=== PATIENT | female | born 1965 | race Caucasian/White ===

== ENCOUNTER 2022-03-14 07:26 | Emergency (ER) | payer MEDICAID, OTHER ==
[~2022-03-14] VITALS: Ht 154.9 cm; Wt 83.5 kg
[~2022-03-14 07:26] MED LIST: DOCU-299 PO; HYDR-5191 PO; NITR100C7 PO
[2022-03-14 07:31] VITALS: BP 150/87
--- NOTE | 2022-03-14 07:36 | NUR ---
PT AMBULATED TO ER BED 12 WITH A STEADY GAIT.
--- NOTE | 2022-03-14 07:51 | NUR ---
56 Y/O FEMALE C/O LOWER ABDOMINAL PAIN 06/02 DESCRIBES ACHING RADIATES TO LUQ WITH N/V/D X6DAYS. DENIES TAKING MEDICATION FOR SYMPTOMS. DENIES FEVERS, CHILLS OR URINARY SYMPTOMS. PMH: HTN, FATTY LIVER NKA
--- NOTE | 2022-03-14 07:54 | NUR ---
REGENERATOR OPERATOR AT PT BEDSIDE.
--- NOTE | 2022-03-14 08:02 | NUR ---
DR. CHEEK AT PT BEDSIDE FOR FURTHER EVALUATION.
[2022-03-14] MEDS ORDERED: KETOROLAC 30 MG/ML VIAL IVP ONE (08:10)
[2022-03-14] MEDS ORDERED: NACL 0.9% 1,000 ML IV SCH (08:10)
[2022-03-14] MEDS ORDERED: ONDANSETRON 4 MG/2 ML VIAL IVP ONE (08:10)
[2022-03-14] MEDS ORDERED: KETOROLAC 30 MG/ML VIAL ONE (08:12)
[2022-03-14 08:35] LABS: ALBUMIN 3.2 g/dL (3.4-5.0); ANION GAP 12.3 (8-16); CARBON DIOXIDE 25.4 mmol/L (21-32); CREATININE 0.8 mg/dL (0.6-1.3); POTASSIUM 3.7 mmol/L (3.5-5.1); TOTAL BILIRUBIN 0.6 mg/dL (0.0-1.0)
[2022-03-14 08:36] LABS: BASOPHILS % (AUTO) 0.3 % (0.0-2.0); EOSINOPHILS # (AUTO) 0.2 K/uL (0-0.4); HEMATOCRIT 41.6 % (36-48); HEMOGLOBIN 14.1 g/dL (12.0-16.0); LYMPHOCYTES # (AUTO) 2.3 K/uL (2.5-16.5); LYMPHOCYTES % (AUTO) 20.6 % (20.5-51.1); MEAN CORPUSCULAR HEMOGLOBIN 30 pg (27-31); MEAN CORPUSCULAR HGB CONC 34 g/dL (33-37); MONOCYTES # (AUTO) 1.2 K/uL (0.8-1.0); MONOCYTES % (AUTO) 10.8 % (1.7-9.3); NEUTROPHILS # (AUTO) 7.2 K/uL (1.8-7.7); NEUTROPHILS % (AUTO) 66.3 % (42.2-75.2); PLATELET COUNT (AUTO) 231 K/uL (140-450); RED BLOOD CELL COUNT(AUTO) 4.67 MIL/uL (4.20-5.40); RED CELL DISTRIBUTION WIDTH 13.4 % (11.6-13.7); WHITE BLOOD COUNT (AUTO) 10.9 K/uL (4.8-10.8)
--- NOTE | 2022-03-14 08:44 | NUR ---
PT TAKEN TO CT VIA RROYER.
--- NOTE | 2022-03-14 09:02 | NUR ---
PT TAKEN TO ER BED 12 VIA SHELBY.
[2022-03-14 09:03] LABS: BILIRUBIN,URINE 1+ (NEGATIVE); BLOOD, URINE 1+ (NEGATIVE); LEUKOCYTE ESTERASE ,URINE NEGATIVE (NEGATIVE); NITRITE, URINE NEGATIVE (NEGATIVE); UGLUCOSE NEGATIVE (NEGATIVE)
[2022-03-14 09:35] LABS: APPEARANCE,URINE CLEAR (CLEAR); COLOR,URINE YELLOW (YELLOW)
[2022-03-14 09:36] LABS: RBC,URINE 0-5 /HPF (0-5); WBC,URINE 0-5 /HPF (0-5)
[2022-03-14] MEDS ORDERED: METR-435 PO (10:15)
[2022-03-14] MEDS ORDERED: ACET-8386 PO (10:15)
[2022-03-14] MEDS ORDERED: CIPR500T4 PO (10:15)
[2022-03-14] MEDS ORDERED: ONDA8TAB87 PO (10:15)
[2022-03-14] MEDS ORDERED: IBUP-2213 PO (10:15)
[2022-03-14 10:28] VITALS: BP 109/55
--- NOTE | 2022-03-14 10:29 | NUR ---
Patient discharged with v/s stable. Written and verbal after care instructions given FOR DIVERTICULITIS and explained. Patient alert, oriented and verbalized understanding of instructions. Ambulatory with steady gait. All questions addressed prior to discharge. ID band removed. Patient advised to follow up with PMD. Rx of NORCO, CIPRO, IBUPROFEN, FLAGYL, AND ZOFRAN given. Patient educated on indication of medication including possible reaction and side effects. Opportunity to ask questions provided and answered.
== END 2022-03-14 10:28 | disposition home or self-care (01) ==
LOC: MED 07:26
DX: K57.92 Diverticulitis of intestine, part unspecified, without perforation or abscess without bleeding (principal); R11.2 Nausea with vomiting, unspecified; R19.7 Diarrhea, unspecified; I10 Essential (primary) hypertension; Z79.899 Other long term (current) drug therapy
CPT/HCPCS: 36415; 74176; 80053; 81001; 81025; 83690; 85025; 96361; 96374; 96375; 99284; J1885; J2405; J7030

== ENCOUNTER 2022-04-26 22:50 | Emergency (ER) | payer OTHER ==
[~2022-04-26] VITALS: Ht 154.9 cm; Wt 79.4 kg
[~2022-04-26 22:50] MED LIST changes: +ACET-8386 PO; +CIPR500T4 PO; +IBUP-2213 PO; +METR-435 PO; +ONDA8TAB87 PO
[2022-04-26 23:00] VITALS: BP 134/93
--- NOTE | 2022-04-27 00:20 | NUR ---
Dr. Saab examining patient.
[2022-04-27] MEDS ORDERED: IBUP-2218 PO ×2 (00:50→23:34)
[2022-04-27] MEDS ORDERED: HYDROcodone/APAP 5/325 MG 1 TAB TAB PO ONE (00:50)
[2022-04-27] MEDS ORDERED: HYDR-5080 PO (00:50)
[2022-04-27] MEDS ORDERED: ACYC-278 PO ×2 (00:50→23:34)
[2022-04-27] MEDS ORDERED: ACYCLOVIR 200 MG CAP PO ONE (00:50)
[2022-04-27 01:12] VITALS: BP 128/72
--- NOTE | 2022-04-27 01:12 | NUR ---
Patient discharged with v/s stable. Written and verbal after care instructions given and explained. Patient alert, oriented and verbalized understanding of instructions. Ambulatory with steady gait. All questions addressed prior to discharge. ID band removed. Patient advised to follow up with PMD. Rx of Acyclovir, [place] and Ibuprofen given. Patient educated on indication of medication including possible reaction and side effects. Opportunity to ask questions provided and answered.
== END 2022-04-27 01:12 | disposition home or self-care (01) ==
LOC: MED 22:50
DX: B02.9 Zoster without complications (principal); I10 Essential (primary) hypertension; Z79.899 Other long term (current) drug therapy; Z79.1 Long term (current) use of non-steroidal anti-inflammatories (NSAID); Z79.891 Long term (current) use of opiate analgesic; Z79.2 Long term (current) use of antibiotics
CPT/HCPCS: 99283

== ENCOUNTER 2022-05-05 09:06 | Emergency (ER) | payer OTHER ==
[~2022-05-05] VITALS: Ht 154.9 cm; Wt 85.9 kg
[~2022-05-05 09:06] MED LIST changes: +ACYC-278 PO; +HYDR-5080 PO; +IBUP-2218 PO
[2022-05-05 09:11] VITALS: BP 157/100
[2022-05-05] MEDS ORDERED: KETOROLAC 60 MG/2 ML VIAL IM ONE (09:30)
[2022-05-05] MEDS ORDERED: IBUP-2213 PO (09:53)
[2022-05-05] MEDS ORDERED: ACET-8386 PO (09:53)
== END 2022-05-05 10:06 | disposition home or self-care (01) ==
LOC: MED 09:06
DX: M54.50 Low back pain, unspecified (principal); B02.9 Zoster without complications; I10 Essential (primary) hypertension; Z79.899 Other long term (current) drug therapy
CPT/HCPCS: 81002; 81025; 96372; 99283; J1885

== ENCOUNTER 2022-05-12 21:38 | Emergency (ER) | payer OTHER ==
[~2022-05-12] VITALS: Ht 154.9 cm; Wt 88.6 kg
[2022-05-12 22:54] VITALS: BP 149/90
--- NOTE | 2022-05-12 22:58 | NUR ---
PT SENT TO LOBBY.
--- NOTE | 2022-05-13 01:05 | NUR ---
PT AMBULATED TO BED #3
[2022-05-13] MEDS ORDERED: DICYCLOMINE 20 MG/2 ML VIAL IM ONE (01:35)
--- NOTE | 2022-05-13 01:43 | NUR ---
LAB AT BEDSIDE FOR BLOOD COLLECTION
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
[2022-05-13 01:52] LABS: BASOPHILS % (AUTO) 0.4 % (0.0-2.0); EOSINOPHILS # (AUTO) 0.4 K/uL (0-0.4); EOSINOPHILS % (AUTO) 3.6 % (0.0-4.0); HEMATOCRIT 39.6 % (36-48); HEMOGLOBIN 13.6 g/dL (12.0-16.0); LYMPHOCYTES # (AUTO) 2.3 K/uL (2.5-16.5); MEAN CORPUSCULAR HEMOGLOBIN 30 pg (27-31); MEAN CORPUSCULAR HGB CONC 34 g/dL (33-37); MEAN CORPUSCULAR VOLUME 88.5 fL (80-94); MONOCYTES % (AUTO) 9.8 % (1.7-9.3); NEUTROPHILS # (AUTO) 6.7 K/uL (1.8-7.7); NEUTROPHILS % (AUTO) 64.2 % (42.2-75.2); PLATELET COUNT (AUTO) 277 K/uL (140-450); RED BLOOD CELL COUNT(AUTO) 4.48 MIL/uL (4.20-5.40); RED CELL DISTRIBUTION WIDTH 14.2 % (11.6-13.7); WHITE BLOOD COUNT (AUTO) 10.5 K/uL (4.8-10.8)
[2022-05-13 02:19] LABS: APPEARANCE,URINE CLEAR (CLEAR); BILIRUBIN,URINE NEGATIVE (NEGATIVE); BLOOD, URINE NEGATIVE (NEGATIVE); COLOR,URINE YELLOW (YELLOW); LEUKOCYTE ESTERASE ,URINE NEGATIVE (NEGATIVE); NITRITE, URINE NEGATIVE (NEGATIVE); UGLUCOSE NEGATIVE (NEGATIVE)
[2022-05-13 02:24] LABS: ALBUMIN 3.6 g/dL (3.4-5.0); ANION GAP 10.3 (8-16); CREATININE 0.8 mg/dL (0.6-1.3); POTASSIUM 3.3 mmol/L (3.5-5.1); TOTAL BILIRUBIN 0.3 mg/dL (0.0-1.0)
[2022-05-13] MEDS ORDERED: POTASSIUM CHLORIDE 10 MEQ TABER PO ONE (02:35)
--- NOTE | 2022-05-13 03:08 | NUR ---
PT TO CT
[2022-05-13] MEDS ORDERED: BEN10 PO (06:13)
[2022-05-13] MEDS ORDERED: NAPR-54 PO (06:13)
[2022-05-13] MEDS ORDERED: CIPR500T4 PO (06:13)
[2022-05-13] MEDS ORDERED: METR-435 PO (06:13)
[2022-05-13 06:45] VITALS: BP 123/78
--- NOTE | 2022-05-13 06:45 | NUR ---
Patient discharged with v/s stable. Written and verbal after care instructions given and explained. Patient alert, oriented and verbalized understanding of instructions. Ambulatory with steady gait. All questions addressed prior to discharge. ID band removed. Patient advised to follow up with PMD. Rx of BENTYL, CIPRO, NAPROXEN AND METRONIDAZOLE given. Patient educated on indication of medication including possible reaction and side effects. Opportunity to ask questions provided and answered.
== END 2022-05-13 06:45 | disposition home or self-care (01) ==
LOC: MED 21:38
DX: K57.32 Diverticulitis of large intestine without perforation or abscess without bleeding (principal); R21 Rash and other nonspecific skin eruption; I10 Essential (primary) hypertension; Z98.890 Other specified postprocedural states; Z79.1 Long term (current) use of non-steroidal anti-inflammatories (NSAID); Z79.899 Other long term (current) drug therapy; Z79.2 Long term (current) use of antibiotics; Z79.891 Long term (current) use of opiate analgesic
CPT/HCPCS: 36415; 74176; 80053; 81003; 83690; 85025; 96372; 99285; J0500

== ENCOUNTER 2022-05-25 15:41 | Emergency (ER) | payer OTHER ==
[~2022-05-25] VITALS: Ht 154.9 cm; Wt 85.3 kg
[~2022-05-25 15:41] MED LIST changes: +BEN10 PO; +NAPR-54 PO
[2022-05-25 15:49] VITALS: BP 152/94
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
--- NOTE | 2022-05-25 16:30 | NUR ---
OSWALDO HUTCHISON AT BEDSIDE FOR EVAL
[2022-05-25] MEDS ORDERED: KETOROLAC 30 MG/ML VIAL IM ONE (16:35)
[2022-05-25] MEDS ORDERED: GABA300C PO (16:56)
[2022-05-25] MEDS ORDERED: IBUP-2213 PO (16:56)
--- NOTE | 2022-05-25 17:29 | NUR ---
Patient discharged with v/s stable. Written and verbal after care instructions given and explained. Patient alert, oriented and verbalized understanding of instructions. Ambulatory with steady gait. All questions addressed prior to discharge. ID band removed. Patient advised to follow up with PMD. Rx of GABAPENTIN AND MOTRIN given. Patient educated on indication of medication including possible reaction and side effects. Opportunity to ask questions provided and answered.
== END 2022-05-25 17:29 | disposition home or self-care (01) ==
LOC: MED 15:41
DX: B02.29 Other postherpetic nervous system involvement (principal); I10 Essential (primary) hypertension; Z79.1 Long term (current) use of non-steroidal anti-inflammatories (NSAID); Z79.899 Other long term (current) drug therapy; Z79.2 Long term (current) use of antibiotics; Z79.891 Long term (current) use of opiate analgesic
CPT/HCPCS: 81002; 81025; 96372; 99283; J1885

== ENCOUNTER 2023-04-23 20:47 | Emergency (ER) | payer OTHER ==
[~2023-04-23] VITALS: Ht 154.9 cm; Wt 83.5 kg
[~2023-04-23 20:47] MED LIST changes: -ACET-8386 PO; +ACET-8905 PO; +GABA300C PO
[2023-04-23 21:17] VITALS: BP 157/95
--- NOTE | 2023-04-23 22:18 | NUR ---
PT AMB TO BED #2
--- NOTE | 2023-04-23 22:24 | NUR ---
Dr. Saunders examining patient.
[2023-04-23 22:47] LABS: BASOPHILS # (AUTO) 0.1 K/uL (0.00-0.22); BASOPHILS % (AUTO) 0.8 % (0.0-2.0); EOSINOPHILS # (AUTO) 0.5 K/uL (0-0.4); EOSINOPHILS % (AUTO) 5.1 % (0.0-4.0); HEMATOCRIT 41.5 % (36-48); HEMOGLOBIN 14.3 g/dL (12.0-16.0); LYMPHOCYTES # (AUTO) 2.6 K/uL (2.5-16.5); LYMPHOCYTES % (AUTO) 26.4 % (20.5-51.1); MEAN CORPUSCULAR HEMOGLOBIN 30 pg (27-31); MEAN CORPUSCULAR HGB CONC 34 g/dL (33-37); MEAN CORPUSCULAR VOLUME 87.4 fL (80-94); MONOCYTES # (AUTO) 0.8 K/uL (0.8-1.0); MONOCYTES % (AUTO) 7.9 % (1.7-9.3); NEUTROPHILS # (AUTO) 5.9 K/uL (1.8-7.7); NEUTROPHILS % (AUTO) 59.8 % (42.2-75.2); PLATELET COUNT (AUTO) 229 K/uL (140-450); RED BLOOD CELL COUNT(AUTO) 4.75 MIL/uL (4.20-5.40); RED CELL DISTRIBUTION WIDTH 13.5 % (11.6-13.7); WHITE BLOOD COUNT (AUTO) 9.8 K/uL (4.8-10.8)
[2023-04-23 23:16] LABS: ANION GAP 12.4 (8-16); CARBON DIOXIDE 27.1 mmol/L (21-32); CREATININE 0.8 mg/dL (0.6-1.3); POTASSIUM 3.5 mmol/L (3.5-5.1); TOTAL BILIRUBIN 0.3 mg/dL (0.0-1.0)
[2023-04-23] MEDS ORDERED: FURO20TA8 PO (23:34)
[2023-04-23 23:51] VITALS: BP 150/89
--- NOTE | 2023-04-23 23:52 | NUR ---
Patient discharged with v/s stable. Written and verbal after care instructions given and explained. Patient alert, oriented and verbalized understanding of instructions. Ambulatory with steady gait. All questions addressed prior to discharge. ID band removed. Patient advised to follow up with PMD. Rx of Lasix sent to preferred pharmacy. Patient educated on indication of medication including possible reaction and side effects. Opportunity to ask questions provided and answered.
== END 2023-04-23 23:52 | disposition home or self-care (01) ==
LOC: MED 20:47
DX: R60.9 Edema, unspecified (principal); R79.89 Other specified abnormal findings of blood chemistry; I10 Essential (primary) hypertension; Z79.899 Other long term (current) drug therapy; Z98.890 Other specified postprocedural states
CPT/HCPCS: 36415; 80053; 83880; 85025; 85379; 99283

== ENCOUNTER 2023-07-06 11:06 | Emergency (ER) | payer OTHER ==
[~2023-07-06] VITALS: Ht 154.9 cm; Wt 85.7 kg
[~2023-07-06 11:06] MED LIST changes: +FURO20TA8 PO
[2023-07-06 11:18] VITALS: BP 143/75; PULSE 75; RESP 16; TEMP 98
[2023-07-06] MEDS ORDERED: ACET-10509 PO (12:25)
[2023-07-06 12:40] VITALS: BP 120/79; PULSE 62; RESP 17
== END 2023-07-06 12:39 | disposition home or self-care (01) ==
LOC: MED 11:06
DX: G89.29 Other chronic pain (principal); M25.572 Pain in left ankle and joints of left foot; M25.561 Pain in right knee; M77.32 Calcaneal spur, left foot; I10 Essential (primary) hypertension; E78.00 Pure hypercholesterolemia, unspecified; Z79.899 Other long term (current) drug therapy; Z79.1 Long term (current) use of non-steroidal anti-inflammatories (NSAID); Z79.2 Long term (current) use of antibiotics
CPT/HCPCS: 73562; 73610; 99284